=== PATIENT | male | born 1995 | race Caucasian/White ===

== ENCOUNTER 2022-05-09 08:56 | Emergency (ER) | payer OTHER, SELFPAY ==
--- NOTE | 2022-05-09 09:05 | ED.SKABFB ---
HPI - Skin/Abscess/Foreign Bdy General Chief complaint: Skin/Abscess/Foreign Body Stated complaint: rash on wrists and inner thighs Time Seen by Provider: 05/09/22 09:38 Source: patient and RN notes reviewed Mode of arrival: ambulatory Limitations: no limitations History of Present Illness HPI narrative: 46-year-old male presents with concern for rash on his inner thighs, belt line, forearms. He reports the rash has been there for several weeks, he reports this started after he new used a new laundry soap. He has since stopped using that soap. He reports the rash gets worse when he is at work and his jeans rub against his skin. He denies taking any medications for the rash. He denies swollen lips, swollen tongue, trouble breathing. There is no rash on areas that are not covered by clothing. MD complaint: rash Related Data Allergies Allergy/AdvReac Type Severity Reaction Status Date / Time No Known Allergies Allergy Verified 05/09/22 09:47 Review of Systems Review of Systems: CONSTITUTIONAL: Denies malaise, chills, sweats, or fever. EYES: Denies redness, or discharge. ENT: Denies rhinorrhea, congestion, swollen lips, swollen tongue CARDIOVASCULAR: Denies chest pain, palpitations, or edema. RESPIRATORY: Denies cough or dyspnea. GASTROINTESTINAL: Denies abdominal pain, nausea, vomiting SKIN: Reports itchy stinging rash to bilateral thighs him about line, forearms MUSCULOSKELETAL: Denies joint pain or myalgia. NEUROLOGIC: Denies headache. All systems reviewed & are unremarkable except as noted in HPI and below PMFSH Comments At time of signature, agree with nursing past medical, surgical, social and family history. There is no relevant family history pertinent to the presenting complaint Exam Narrative: GENERAL: Well-appearing, well-nourished, and in no acute distress. HEAD: Normocephalic, atraumatic. EYES: PERRLA, conjunctivae clear, and EOMI. ENT: Mucous membranes moist. Oropharynx without edema, erythema or lesions. NECK: Supple. No lymphadenopathy CHEST: Clear to auscultation. No respiratory distress. HEART: Regular rate and rhythm. SKIN: Warm, dry. Erythematous maculopapular rash consistent with contact dermatitis noted to bilateral thighs, forearms, waistline. Rash on thighs has some annular areas, possibly concern for tinea. NEURO: Alert and oriented x3. PSYCH: Normal mood and affect Course Course Emergency Course: Rash appears to be contact dermatitis, however cannot rule out tinea so will prescribe clobetasol topical ointment Patient is aware of diagnosis, understands and agrees to treatment plan. Anticipatory guidance given. Patient agrees to follow-up as directed and is aware of reasons to seek care at the emergency department. Portions of this record may have been created with voice recognition software Level of Care: Express Care Visit Vital Signs Vital signs: Vital Signs Temperature 98.2 F 05/09/22 09:07 Pulse Rate 92 05/09/22 09:07 Respiratory Rate 16 05/09/22 09:07 Blood Pressure 124/60 05/09/22 09:07 Pulse Oximetry 98 05/09/22 09:07 Oxygen Delivery Room Air 05/09/22 09:07 Temperature 98.2 F 05/09/22 09:07 Pulse Rate 92 05/09/22 09:07 Respiratory Rate 16 05/09/22 09:07 Blood Pressure 124/60 05/09/22 09:07 Pulse Oximetry 98 05/09/22 09:07 Oxygen Delivery Room Air 05/09/22 09:07 Reviewed. MDM - Skin/Abscess/Foreign Bdy MDM Narrative Medical decision making narrative: Does not appear at this time to be erythema multiforme, bullous, SJS, TEN; no evidence at this time to suggest RMSF, endocarditis or Lyme disease; patient looks well, nontoxic and is tolerating oral intake; no neurologic signs or symptoms; no headache, photophobia or neck pain; afebrile; appropriate for initial outpatient treatment; discussed the importance of follow-up, patient agrees; question, viral exanthema, contact dermatitis, allergic dermatitis, eczema, urticaria, tinea. No soft
[2022-05-09 09:07] VITALS: BP 124/60; PULSE 92; RESP 16; TEMP 36.8; O2SAT 98
== END 2022-05-09 09:52 | disposition home or self-care (01) ==
PROVIDERS: Emergency Provider Nurse Practitioner
DX: L25.9 Unspecified contact dermatitis, unspecified cause (principal)
CPT/HCPCS: 99213; G0463

== ENCOUNTER 2022-05-16 11:07 | Emergency (ER) | payer OTHER, SELFPAY ==
[2022-05-16 11:30] VITALS: BP 119/62; PULSE 81; RESP 18; TEMP 37.1; O2SAT 98
--- NOTE | 2022-05-16 11:39 | ED.SKABFB ---
HPI - Skin/Abscess/Foreign Bdy General Chief complaint: Skin/Abscess/Foreign Body Stated complaint: rash, vomiting Source: patient and RN notes reviewed History of Present Illness HPI narrative: 26-year-old male presents to urgent care with complaints of a rash. Patient states he was seen here last week and diagnosed with contact dermatitis is given oral steroids as well as topical. Patient states he missed his oral steroid dose last night and does not know when or how to start taking it again. Patient states he missed work last night because he vomited once. Patient contributes this vomiting to the fact that he ate buffalo chicken. Patient does admit not washing his coat yet with the new detergent. Pt contributes his rash to the new detergent he was using. Some parts of this dictation were generated by voice recognition software and may contain typographical and/or grammatical inaccuracies. Related Data Allergies Allergy/AdvReac Type Severity Reaction Status Date / Time No Known Allergies Allergy Verified 05/16/22 11:34 Review of Systems Review of Systems: CONSTITUTIONAL: Denies fever, chills, or sweats. EYES: Denies visual changes, redness, or discharge. ENT: Denies otalgia and sore throat CARDIOVASCULAR: Denies chest pain, palpitations, or edema. RESPIRATORY: Denies cough or dyspnea. GASTROINTESTINAL: Denies abdominal pain, nausea, vomiting, or diarrhea. GENITOURINARY: Denies dysuria or hematuria. SKIN: Reports rash MUSCULOSKELETAL: Denies back pain, joint pain, or myalgia. PMFSH Comments At the time of my signature, I reviewed and agree with the nursing past medical, surgical, social, and family history. There is no relevant family history pertinent to the patient complaint. Exam Narrative: GENERAL: This is a well-nourished, well-developed patient, in no apparent distress. HEAD: normocephalic, atraumatic. EYES: PERRL. Sclera clear/white. Vision is grossly intact. EARS: External ears normal, auditory canals clear and without drainage, TMs normal without perforation. Hearing grossly intact. NOSE: External nose normal with no obvious nasal discharge, nares without redness, no rhinorrhea. THROAT: Mucous membranes moist, posterior pharynx clear. NECK: Neck supple, non-tender without lymphadenopathy, masses or thyromegaly. CARDIOVASCULAR: Regular rate and rhythm without murmurs, gallops, or rubs. RESPIRATORY: Clear to auscultation. Breath sounds equal bilaterally. No wheezes, rales, or rhonchi. GASTROINTESTINAL: Abdomen soft, non-tender, nondistended. Bowel sounds are active. No hepato-splenomegaly, or palpable masses. No guarding. SKIN: Scattered, erythremic, papules to bilateral hands. Dry skin to left hip area. NEURO: awake, alert, and oriented to person, place and time. There were no obvious focal neurologic abnormalities. Course Course Level of Care: Express Care Visit Vital Signs Vital signs: Vital Signs Temperature 98.8 F 05/16/22 11:30 Pulse Rate 81 05/16/22 11:30 Respiratory Rate 18 05/16/22 11:30 Blood Pressure 119/62 05/16/22 11:30 Pulse Oximetry 98 05/16/22 11:30 Oxygen Delivery Room Air 05/16/22 11:30 Temperature 98.8 F 05/16/22 11:30 Pulse Rate 81 05/16/22 11:30 Respiratory Rate 18 05/16/22 11:30 Blood Pressure 119/62 05/16/22 11:30 Pulse Oximetry 98 05/16/22 11:30 Oxygen Delivery Room Air 05/16/22 11:30 Reviewed MDM - Skin/Abscess/Foreign Bdy MDM Narrative Medical decision making narrative: Follow up with a human resources operations coordinator or house wirer helper. Oatmeal bathes may help. may take Benadryl for itching. Continue your steroids as prescribed. Differential Diagnosis Differential diagnosis: Likely viral exanthem, urticaria, allergic reaction to drug, eczema and contact dermatitis Critical Care Time Critical Care Time Critical Care Time: No Discharge Plan Discharge Clinical Impression: Contact dermatitis Qualifiers: Contact dermatitis type: un
== END 2022-05-16 12:05 | disposition home or self-care (01) ==
PROVIDERS: Emergency Provider Nurse Practitioner Family
DX: L25.9 Unspecified contact dermatitis, unspecified cause (principal)
CPT/HCPCS: 99211; G0463

== ENCOUNTER 2022-07-11 08:10 | Emergency (ER) | payer OTHER, SELFPAY ==
[2022-07-11 08:16] VITALS: BP 114/57; PULSE 72; RESP 16; TEMP 36.6; O2SAT 99
--- NOTE | 2022-07-11 08:28 | ED.URI ---
HPI - URI/Sore Throat General Chief Complaint: Upper Respiratory Infection Stated Complaint: head cold Source: patient and RN notes reviewed History of Present Illness HPI Narrative: 27 yo M presents to urgent care with complaints of a head cold. Pt states he has been congested and having a runny nose x 2-3 days. Pt reports a cough that will make his throat hurt when he coughs. Denies any fevers, chills, ear pain, chest pain, SOB, N/V/D. Pt has not taken anything for his symptoms. 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 Related Data Allergies Allergy/AdvReac Type Severity Reaction Status Date / Time No Known Allergies Allergy Verified 07/11/22 08:25 Review of Systems Review of Systems: Pertinent positives and pertinent negatives per HPI. PMFSH Comments At the time of my signature, I reviewed and agree with the nursing past medical, surgical, social, and family history. There is no relevant family history pertinent to the patient complaint. Exam Narrative: GENERAL: This is a well-nourished, well-developed patient, in no apparent distress. HEAD: normocephalic, atraumatic. EYES: PERRL. Sclera clear/white. Vision is grossly intact. EARS: External ears normal, auditory canals clear and without drainage, TMs normal without perforation. Hearing grossly intact. NOSE: External nose normal with no obvious nasal discharge, nares without redness, no rhinorrhea. THROAT: Mucous membranes moist, posterior pharynx clear. NECK: Neck supple, non-tender without lymphadenopathy, masses or thyromegaly. CARDIOVASCULAR: Regular rate and rhythm without murmurs, gallops, or rubs. RESPIRATORY: Clear to auscultation. Breath sounds equal bilaterally. No wheezes, rales, or rhonchi. GASTROINTESTINAL: Abdomen soft, non-tender, nondistended. Bowel sounds are active. No hepato-splenomegaly, or palpable masses. No guarding. SKIN: warm, intact with no suspicious lesions or rash, good texture and turgor. NEURO: awake, alert, and oriented to person, place and time. There were no obvious focal neurologic abnormalities. Course Course Level of Care: Express Care Visit Vital Signs Vital signs: Vital Signs Temperature 98 F 07/11/22 08:16 Pulse Rate 72 07/11/22 08:16 Respiratory Rate 16 07/11/22 08:16 Blood Pressure 114/57 L 07/11/22 08:16 Pulse Oximetry 99 07/11/22 08:16 Oxygen Delivery Room Air 07/11/22 08:16 Temperature 98 F 07/11/22 08:16 Pulse Rate 72 07/11/22 08:16 Respiratory Rate 16 07/11/22 08:16 Blood Pressure 114/57 L 07/11/22 08:16 Pulse Oximetry 99 07/11/22 08:16 Oxygen Delivery Room Air 07/11/22 08:16 Reviewed MDM - URI/Sore Throat MDM Narrative Medical decision making narrative: Viral illness may last between 7-12days; antibiotic is NOT recommended at this time. Recommend antihistamine such as Benadryl at night time and Claritin/Zyrtec/Blossom during the day. Increase your Vitamin C intake. Also, recommend symptomatic treatment includes: rest, fluids, increase humidity of the air at home with a humidifier in the bedroom. Recommend Acetaminophen or nonsteroidal anti-inflammatory agents(NSAIDs) as directed in the bottle to reduce fever and/pain/headache. Avoid smoking/second-hand smoke. Limit visits to areas with large crowds. Frequent hand washing or hand accounts receivable processor is one of the best ways to prevent spread of infection. Differential Diagnosis Differential diagnosis: Likely upper respiratory infection, sinusitis and pharyngitis Critical Care Time Critical Care Time Critical Care Time: No Discharge Plan Discharge Clinical Impression: Upper respiratory infection Qualifiers: URI type: unspecified viral URI Qualified Code(s): J06.9 - Acute upper respiratory infection, unspecified Patient Disposition: Home, Self-Care Condition: Stable Instructions: Cold Symptoms (ED) Additional Instructions: Viral il
== END 2022-07-11 08:32 | disposition home or self-care (01) ==
PROVIDERS: Emergency Provider Nurse Practitioner Family; PCP Emergency Medicine
DX: J06.9 Acute upper respiratory infection, unspecified (principal)
CPT/HCPCS: 99213; G0463

== ENCOUNTER 2023-08-31 10:48 | Emergency (ER) | payer SELFPAY ==
[2023-08-31 11:08] VITALS: BP 143/76; PULSE 100; RESP 20; TEMP 37.1; O2SAT 96
--- NOTE | 2023-08-31 11:36 | ED.ANIMALBIT ---
HPI - Animal Bite General Chief Complaint: Animal Bite Stated Complaint: Dog Bite/ Fingers, Right Hand/Left Arm Time Seen by Provider: 08/31/23 11:36 Source: patient, RN notes reviewed and old records reviewed Mode of arrival: ambulatory Limitations: no limitations History of Present Illness HPI narrative: 28-year-old male to Express Care for complaint multiple dog bites happened 3 days ago. Patient reports being attacked by his 's dog. Patient states that he has been attempting wound care at home, endorses increased redness and swelling with some wound sites, especially. Patient endorses puncture wound to right anterior wrist that he squeezed this morning and had purulent drainage. Patient uncertain of last Tdap and refused booster in exam room. Patient reports that dog is up-to-date on vaccinations. No active bleeding noted. Patient calm and cooperative. Related Data Home Medications Medication Instructions Recorded Confirmed No Home Medications 08/31/23 08/31/23 Allergies Allergy/AdvReac Type Severity Reaction Status Date / Time No Known Allergies Allergy Verified 08/31/23 11:48 Review of Systems Review of Systems: All systems reviewed & are unremarkable except as noted in HPI and below Constitutional: Constitutional: Reports as per HPI and Denies fever(s) Eyes: Eyes: Reports no additional eye complaints ENT: Reports system reviewed and no additional complaints, except as documented Cardiovascular: Cardiovascular: Reports no additional cardiovascular complaints, Denies chest pain and Denies dyspnea Respiratory: Respiratory: Reports no additional respiratory complaints, Denies cough and Denies dyspnea Musculoskeletal: Musculoskeletal: Reports no additional musculoskeletal complaints Integumentary/Breasts: Skin/Breast: Reports as per HPI and Reports wounds Comments: multiple wounds to left dorsal forearm, right palmar hand and fingers, right anterior wrist Neurologic: Reports as per HPI, Denies Sensory deficit (Neuro), Denies tingling and Denies weakness Comments: Psychiatric: Psychiatric: Reports no additional psychiatric complaints PMFSH Comments At the time of my signature, I reviewed and agree with the nursing past medical, surgical, social, and family history. There is no relevant family history pertinent to the patient complaint. Exam Const: General: cooperative, healthy appearing, comfortable, no acute distress, alert and well nourished Nutritional Appearance: well nourished Orientation/consciousness: patient oriented x3 Limitations: no limitations HENMT: Head: normal to inspection Ears: external ears normal Face/Nose/Sinus: Normal external nose present, Normal nares present, normal facial exam, No erythema and No edema Face and sinus: normal facial exam, no erythema and no edema Mouth: Yes Normal oral and palatal mucosa present Eyes: General: appearance normal, both eyes and all related structures Neck: Neck: normal visual inspection, full ROM and no meningeal signs Lymphatic: no lymphadenopathy noted and no lymphedema noted Chest: Chest palpation & inspection: normal inspection of the chest Resp: Effort & Inspection: normal respiratory effort and able to speak in complete sentences Auscultation: clear to auscultation bilaterally Cardio: Jugular venous distension: no JVD Rate: regular rate Rhythm: regular rhythm Back/Spine/Pelvis: Cervical Spine: cervical ROM normal Skin: General skin exam: normal color, turgor normal and wounds noted Wounds: wounds noted Left dorsal forearm: unapproximated 1cmx.3cm, no drainage noted , Right distal palmar forearm: .5 cm approximated wound with surrounding area of erythematous and edematous tissue , right dorsal index finger: 3cm scabbed abrasion, no drainage Other: Multiple small superficial scabbed/healing abrasions to left forearm and right hand; non erythematous, non edematous Neuro: General: patient oriented x
== END 2023-08-31 11:50 | disposition home or self-care (01) ==
PROVIDERS: Emergency Provider Nurse Practitioner Family; PCP Family Medicine
DX: S51.852A Open bite of left forearm, initial encounter (principal); S51.851A Open bite of right forearm, initial encounter; S60.410A Abrasion of right index finger, initial encounter; W54.0XXA Bitten by dog, initial encounter
CPT/HCPCS: 99213; G0463